=== PATIENT | female | born 1950 | race Caucasian/White ===

== ENCOUNTER → 2023-12-20 | Outpatient (CLI) | payer MEDICARE, OTHER, SELFPAY ==
--- NOTE | 2023-12-20 13:10 | RAD_ITS ---
STUDY: X-RAY - LEFT KNEE REASON FOR EXAM: Female, 73 years old. Left anterior knee pain. TECHNIQUE: 3 view(s) of the knee. COMPARISON: None. FINDINGS: Marked osteopenia. Tricompartmental arthrosis most marked laterally with osteophyte formation. Changes of ACL reconstruction. Small joint effusion. RAD/Knee 3 Views IMPRESSION: Osteopenia with changes of ACL reconstruction and tricompartmental arthrosis, most marked laterally. Electronically Signed: Cesar Ross MD at 13:44 EDT ,
== END | disposition home or self-care (01) ==
LOC: MTRAD 13:07
PROVIDERS: PCP Internal Medicine; Referring Provider Internal Medicine; Visit Provider Internal Medicine
DX: M25.562 Pain in left knee (principal)
CPT/HCPCS: 73562